=== PATIENT | female | born 1940 | race Caucasian/White ===

== ENCOUNTER 2018-05-10 08:52 | Day surgery (SDC) | payer MEDICARE, BC, SELFPAY ==
[2018-05-06 12:25] LABS: Hematocrit 42.3 % (37-47); Hemoglobin 14.6 g/dl (12.0-15.0); Mean Corp Hgb Conc 34.5 g/gl (32-36); Mean Corpuscular Hgb 31.7 pg (27.0-32.0); Mean Corpuscular Volume 91.8 fL (81-99); Mean Platelet Vol. 9.2 fl (6.2-12.0); Platelet Count 331 K/mm3 (150-450); RBC Distribution Width CV 13.5 % (11.6-14.6); RBC Distribution Width SD 44.4 fl (35.1-43.9); Red Blood Count 4.61 M/mm3 (4.2-5.4); White Blood Count 6.6 K/mm3 (4.4-11.0)
[2018-05-06 12:27] LABS: Scan Indicated on CBC? Y/N NO
[2018-05-06 13:09] LABS: Anion Gap 13 (5-15); BUN 27 mg/dL (7-18); BUN/Creat Ratio 32.6 RATIO (10-20); Chloride 105 mmol/L (98-107); Creatinine, Serum 0.83 mg/dL (0.55-1.02); EST Glomerular Filtration Rate 71 mL/min (>60); Est Glom Filt Rate - Afr Amer 85 mL/min (>60); Glucose 111 mg/dL (74-106); Potassium 3.8 mmol/L (3.5-5.1); Sodium Level 142 mmol/L (136-145)
[2018-05-10] VITALS (8 sets, daily range): BP systolic 119–146; BP diastolic 52–81; PULSE 59–93; RESP 16–18; TEMP 36–36.6; O2SAT 92–99; BMI 26.6
[2018-05-10] MEDS: Phenazopyridine 95 MG Tablet 190 MG PO (07:00)
[2018-05-10] MEDS: Cefazolin 2 GM in 0.9% Normal Saline 100 ML IV (10:07)
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
--- NOTE | 2018-05-10 10:30 | HYST_PTH ---
PATIENT: RY ABEBE [place] [facility] [place][id number] AGE/SX: 77/F ROOM: RE05/10/[address]: Dr. Vielka Mukherjee MD : [id number] BED: DIS: 05/10/2018 SPEC #: [id number] RECD: 05/10/18 13:54 STATUS: TORREY VERNA #: [id number] RODRIGUEZ: 05/10/18 10:[address]: Vielka Mukherjee DEPT: SURGICAL PATHOLOGY RECD BY: Abhilash Humphrey ENTERED: 05/10/18 14:31 SP TYPE: HYSTERECT OTHR DR: Dr. Orestes Ashraf III, MD Tissues: Uterus, NOS Procedures: Surgery Specimen Level V HEADER OPERATION: Total vaginal hysterectomy, salpingectomy, anterior and posterior repair PRE-OP DIAGNOSIS: Uterovaginal prolapse, stress urinary incontinence TISSUE SUBMITTED: Uterus, bilateral fallopian tubes MICROSCOPIC DIAGNOSIS Uterus and bilateral fallopian tubes, vaginal hysterectomy, bilateral salpingectomy and anterior and posterior repair: Cervix ? chronic cystic cervicitis and hyperkeratosis. Endometrium ? cystic atrophic endometrium. Endometrial polyp ? benign endometrial polyp with cystic changes. Myometrium ? intramural leiomyoma (1 cm in greatest dimension). - Focal superficial adenomyosis. Bilateral fallopian tubes - no pathologic diagnosis. Mucosal tissue ? squamous mucosal tissue with mild chronic inflammation. SJ:tyron 05/13/18 MICROSCOPIC DESCRIPTION Slides are reviewed. GROSS DESCRIPTION Received in fixative is one container labeled with the patient's name and designated uterus. The specimen consists of a uterus with attached cervix measuring 9.5 x 4 x 3 cm and weighing 56.5 gm. The ectocervix is unremarkable and the cervical os is oval in contour. The endocervical canal measures 5.6 cm in length and is grossly unremarkable. The elongated endometrial cavity measures 4 x 2 cm. The endometrium is light toure, velvety and glistening and measures up to 0.1 cm in thickness. The posterior endometrial wall contains a fleshy, pink-toure polyp measuring 2.5 x 2 x 1 cm. The myometrium immediately beneath the polyp is not indurated. The myometrium measures 1.5 cm in greatest thickness. The posterior myometrial wall contains a rubbery nodule measuring 1 cm and grossly consistent with a leiomyoma. Present free in the container are two fallopian tubes. Each fallopian tube has an average length of 5 cm and a maximal diameter of 0.5 cm. The fimbriated ends are normal and no mass lesions are identified. Also present free in the specimen container are two irregular fragments of glistening, toure mucosa with attached submucosal tissue measuring in aggregate 5.3 x 2 x 0.5 cm. No mucosal mass lesions are present. Mortgage Consultant sections are submitted in eight cassettes as follows: 1 - anterior cervix, 2 - posterior cervix, 3 ? endometrial polyp, 4 - anterior uterine wall, 5 - posterior uterine wall with myometrial nodule, 6 ? one fallopian tube, 7 ? the other fallopian tube, 8 ? mucosal tissue. / AM:tyron 05/10/18 TC:5 CPT: 33518
[2018-05-10] MEDS: Dextrose 50%-Water 25 GM/50 ML DISP.SYRIN IV (11:27)
[2018-05-10] MEDS: Bupiv/Epi 0.5% Mpf 30 ML Vial (11:37)
--- NOTE | 2018-05-10 12:15 | PCM.DC.VHY ---
Discharge Activity: Return to Normal Activity, May not drive while taking narcotic pain medications. May shower in (days): 6 Weight Bearing Status: Full weight bearing Call your doctor if your incision/area has: Continuous Slow Oozing, Sudden Increased Bleeding, Increased Pain/ Swelling, Increased Redness, Foul Smelling Discharge Call your doctor if you observe: Fever of 101 or Higher, Inability to urinate, Inability to have a bowel movement, Using more than one pad per hour Allergies/Adverse Reactions: Allergies prednisone Allergy (Mild, Verified 05/03/18 08:50) Unknown Medications to take at Discharge lisinopril 20 mg-hydrochlorothiazide 12.5 mg tablet 1 tab PO QDAY 09/05/17 multivitamin,cz-pmye-[id number] tablet 1 tab PO QDAY 09/05/17 Ascorbic Acid [Vitamin C] 1,000 mg PO DAILY 05/03/18 Calcium (Elemental) [Os-Laureano 500] 500 mg PO DAILY@0800 05/03/18 Turmeric Root Extract [Turmeric] 500 mg PO DAILY 05/03/18 Primary Care Physician: Orestes Ashraf III, MD [Primary Care Provider] - Test Results: Test results from this visit will be discussed in further detail at your follow-up appointment, if applicable. Please Follow Up With: Vielka Mukherjee MD Proposed Discharge Date: 05/10/18
[2018-05-10] MEDS: Ibuprofen 400 MG Tablet 800 MG PO (13:40)
== END 2018-05-10 15:03 | disposition home or self-care (01) ==
LOC: SDC 08:53 → AC 08:54
PROVIDERS: Family Provider Family Medicine; PCP Family Medicine; Visit Provider Obstetrics & Gynecology
PROC: (CPT 58260; principal; 2018-05-10 10:10)
DX: N81.2 Incomplete uterovaginal prolapse (principal); N39.3 Stress incontinence (female) (male); N72 Inflammatory disease of cervix uteri; N88.0 Leukoplakia of cervix uteri; N84.0 Polyp of corpus uteri; D25.1 Intramural leiomyoma of uterus; I10 Essential (primary) hypertension; Z79.899 Other long term (current) drug therapy
CPT/HCPCS: 57260; 57288; 58262; 36415; 80048; 85027; 88307; 93005; J7120; C1771; J1940; J2405